=== PATIENT | female | born 1975 | race Caucasian/White ===

== ENCOUNTER → 2016-06-11 | Outpatient (CLI) | payer BC ==
[~2016-06-11] MED LIST: AMT10 PO; BCPILLS PO; CEPH500C2 PO; CETI10TA84 PO; NORE0.1T PO; ONDA4TAB10 SL; ONDA8TAB62 SL; OXYC-57 PO; OXYC1TAB3 PO; PANT40TA PO
== END | disposition home or self-care (01) ==
LOC: C.PAPS 10:02
PROVIDERS: ATTEND Physician Assistant
DX: Z01.419 Encounter for gynecological examination (general) (routine) without abnormal findings (principal)

== ENCOUNTER 2016-10-26 12:11 | Emergency (ER) | payer BC ==
[2016-10-26 12:20] VITALS: TEMP 36.6; Ht 162.6 cm
[2016-10-26] MEDS ORDERED: CETI10TA84 PO (12:35)
[2016-10-26] MEDS ORDERED: BCPILLS PO (12:35)
[2016-10-26] MEDS ORDERED: HYDROmorphone INJ 1 MG/ML SYR IV STA ×2 (12:42→13:45)
[2016-10-26] MEDS ORDERED: METOCLOPRAMIDE HCL INJ 5 MG/ML 2 ML VIAL IV STA (12:42)
[2016-10-26] MEDS ORDERED: KETOROLAC TROMETHAMINE 30 MG/ML VIAL IV STA (12:42)
[2016-10-26] MEDS ORDERED: SODIUM CHLORIDE 0.9% 1000ML 1,000 ML IV STA (12:42)
--- NOTE | 2016-10-26 12:47 | EMERGENCY ROOM VISIT NOTE ---
History Report prepared by Stephen: Justine Lucero Under the Supervision of: Dr. Avery Welch M.D. First contact with patient: 12:34 Chief Complaint: VOMITING Stated Complaint: VOMITING, LOOSE STOOLS, COUGH History of Present Illness The patient is a 41 year old female who presents to the Emergency Room with complaints of persistent abdominal pain that began today around 0200. She currently rates her discomfort as a 4/10 in severity. The patient states that Saturday she began experiencing nausea, vomiting, and diarrhea. She states that today she woke up around 0200 with chest pain, back pain, cough, chills, and abdominal pain. The patient states that she was sent to the emergency department by her PCP with concerns for appendicitis. She reports a history of ovarian cysts, a previous section, and a cholecystectomy. The patient states that her pain is alleviated with her legs towards her, noting that it helps to take the pressure of the area. Source of History: patient Onset: 0200 Position: abdomen Symptom Intensity: 4/10 Quality: pressure Timing: other (persistent) Modifying Factors (Relieving): other (legs up to her abdomen) Associated Symptoms: + chills, + cough, + chest pain, + nausea, + vomiting, + back pain, + diarrhea Review of Systems See HPI for pertinent positives & negatives. A total of 10 systems reviewed and were otherwise negative. Past Medical & Surgical Medical Problems: (1) Asthma, Unspecified (2) Pneumonia, Organism Nos (3) Syncope And Collapse Surgical Problems: (1) History of tonsillectomy (2) Previous section (3) S/P cholecystectomy Family History Cancer Diabetes mellitus Gallbladder disease Heart disease Hypertension Kidney disease Kidney stones Seizures Social History Smoking Status: Former Smoker Alcohol Use: occasionally Drug Use: none Marital Status: Housing Status: lives with significant other Occupation Status: employed Current/Historical Medications Scheduled Control Pills ( Control Pills), 1 TAB PO DAILY Cetirizine (Zyrtec), 10 MG PO DAILY Ondasetron Odt (Zofran Odt), 4 MG SL Q6H Scheduled PRN Oxycodone/Acetaminophen 5MG/325MG (Percocet 5MG/325MG), 1-2 TAB PO Q4H PRN for Pain Allergies Coded Allergies: No Known Allergies (Unverified , 01/13/15) Physical Exam Vital Signs Date Time Temp Pulse Resp B/P (MAP) Pulse Ox O2 Delivery O2 Flow Rate FiO2 10/26/16 15:09 67 23 126/86 98 Room Air 10/26/16 13:52 76 18 105/79 97 Room Air 10/26/16 13:04 80 20 130/98 98 10/26/16 13:04 85 10/26/16 12:20 36.6 124 20 142/86 97 Room Air Physical Exam GENERAL: Patient is a healthy-appearing well-nourished female HEAD: Normocephalic atraumatic EYES: Ocular movements intact pupils equal and react to light OROPHARYNX mucous membranes are moist no exudates present no erythema or edema present NECK: Supple no nuchal rigidity CHEST: Good equal expansion LUNGS: Clear and equal to auscultation CARDIAC: Normal S1 and S2 ABDOMEN: Exquisitely tender in the right lower quadrant, positive rebound, positive guarding. Soft. BACK: No CVA tenderness EXTREMITIES: No pain upon palpation normal muscle strength in all groups no clubbing cyanosis or edema NEURO: Patient is following commands and answering questions appropriately. Alert and oriented x3 Cranial Nerves 2-12 grossly intact Medical Decision & Procedures ER Provider Diagnostic Interpretation: Radiology results as stated below per my review and radiologist interpretation: ABD/PELVIS IV CONTRAST ONLY HISTORY: 41 years-old Female acute right lower quadrant abdominal pain COMPARISON: CT abdomen and pelvis 11/04/2014 TECHNIQUE: Multiple axial CT images of the abdomen and pelvis were obtained following the intravenous administration of 92 mL Optiray 320. A dose lowering technique was used consistent with the principals of ALARA. FINDINGS: There is mild dependent bibasilar atelectasis. There is no pneumoperitoneum identified. The imaged inferior cardiac chambers are unremarkable. There is suggested diffuse fatty infiltration of the liver. Prior cholecystectomy. The spleen, pancreas and adrenal glands are within normal limits. The kidneys, ureters and urinary bladder are unremarkable. Cyst of the left adnexum is seen, 2.5 x 2.3 cm. Globular morphology of the uterus is seen with hyper attenuating foci seen within the region of the right posterior fundal uterus measuring up to 3.0 x 3.5 cm. The abdominal aorta is normal in course and caliber. No bulky adenopathy. There is no bowel obstruction. Hyperattenuating foci within the colon suggests prior oral contrast. No focal bowel wall thickening. [id number] stool burden. The appendix appears normal. Soft tissues are unremarkable. The bones are intact. IMPRESSION: 1. No evidence of acute appendicitis. 2. Globular morphology of the uterus is again seen with hyperattenuating foci within the region of the right posterior fundal uterus which may reflect complex fibroids and could be further evaluated with pelvic ultrasound. Probable dominant follicle of the left ovary also noted. 3. Prior cholecystectomy. 4. Fatty infiltration of the liver. The above report was generated using voice recognition software. It may contain grammatical, syntax or spelling errors. Electronically signed by: Antony Banegas M.D. 10/26/2016 1:52 PM Dictated Date/Time: 10/26/2016 1:46 PM Laboratory Results 10/26/16 12:50 Red Blood Count 5.25, Mean Corpuscular Volume 91.4, Mean Corpuscular Hemoglobin 30.1, Mean Corpuscular Hemoglobin Concent 32.9, Mean Platelet Volume 9.0, Neutrophils (%) (Auto) 57.6, Lymphocytes (%) (Auto) 34.1, Monocytes (%) (Auto) 5.9, Eosinophils (%) (Auto) 1.4, Basophils (%) (Auto) 0.7, Neutrophils # (Auto) 4.11, Lymphocytes # (Auto) 2.43, Monocytes # (Auto) 0.42, Eosinophils # (Auto) 0.10, Basophils # (Auto) 0.05 10/26/16 12:50 Test 10/26/16 12:50 10/26/16 12:58 White Blood Count 7.13 K/uL (4.8-10.8) Red Blood Count 5.25 M/uL (4.2-5.4) Hemoglobin 15.8 g/dL (12.0-16.0) Hematocrit 48.0 % (37-47) Mean Corpuscular Volume 91.4 fL (80-100) Mean Corpuscular Hemoglobin 30.1 pg (25-34) Mean Corpuscular Hemoglobin Concent 32.9 g/dl (32-36) Platelet Count 248 K/uL (130-400) Mean Platelet Volume 9.0 fL (7.4-10.4) Neutrophils (%) (Auto) 57.6 % Lymphocytes (%) (Auto) 34.1 % Monocytes (%) (Auto) 5.9 % Eosinophils (%) (Auto) 1.4 % Basophils (%) (Auto) 0.7 % Neutrophils # (Auto) 4.11 K/uL (1.4-6.5) Lymphocytes # (Auto) 2.43 K/uL (1.2-3.4) Monocytes # (Auto) 0.42 K/uL (0.11-0.59) Eosinophils # (Auto) 0.10 K/uL (0-0.5) Basophils # (Auto) 0.05 K/uL (0-0.2) RDW Standard Deviation 41.9 fL (36.4-46.3) RDW Coefficient of Variation 12.5 % (11.5-14.5) Immature Granulocyte % (Auto) 0.3 % Immature Granulocyte # (Auto) 0.02 K/uL (0.00-0.02) Urine Color YELLOW Urine Appearance CLEAR (CLEAR) Urine pH 5.5 (4.5-7.5) Urine Specific [place] 1.012 (1.000-1.030) Urine Protein NEG (NEG) Urine Glucose (UA) NEG (NEG) Urine Ketones NEG (NEG) Urine Occult Blood 1+ (NEG) Urine Nitrite NEG (NEG) Urine Bilirubin NEG (NEG) Urine Urobilinogen NEG (NEG) Urine Leukocyte Esterase NEG (NEG) Urine WBC (Auto) 1-5 /hpf (0-5) Urine RBC (Auto) 0-4 /hpf (0-4) Urine Hyaline Casts (Auto) 1-5 /lpf (0-5) Urine Epithelial Cells (Auto) >30 /lpf (0-5) Urine Bacteria (Auto) NEG (NEG) Estimated GFR () 94.0 Estimated GFR (Non- 81.1 BUN/Creatinine Ratio 15.1 (10-20) Calcium Level 9.3 mg/dl (8.5-10.1) Total Bilirubin 0.4 mg/dl (0.2-1) Direct Bilirubin < 0.1 mg/dl (0-0.2) Aspartate Amino Transf (AST/SGOT) 54 U/L (15-37) Alanine Aminotransferase (ALT/SGPT) 85 U/L (12-78) Alkaline Phosphatase 58 U/L (45-117) Total Protein 6.9 gm/dl (6.4-8.2) Albumin 3.6 gm/dl (3.4-5.0) Lipase 334 U/L (73-393) Bedside Hemoglobin 16.0 g/dl (12.0-16.0) Bedside Hematocrit 47 % (37-47) Bedside Sodium 140 mEq/L (135-144) Bedside Potassium 4.0 mEq/L (3.3-5.0) Bedside Chloride 104 mEq/L (101-112) Bedside Total CO2 24 mEq/l (24-31) Anion Gap 16.0 mmol/L (16-25) Bedside Blood Urea Nitrogen 14 mg/dl (7-18) Bedside Creatinine 0.9 mg/dl (0.6-1.3) Bedside Glucose (other) 104 mg/dl (70-99) Bedside Ionized Calcium (Kayla) 1.18 mmol/l (1.12-1.32) Labs reviewed by ED physician. Medications Administered Medications (Trade) Dose Ordered Sig/Chantell Route Start Time Stop Time Status Last Admin Dose Admin Sodium Chloride 1,000 ml @ 999 mls/hr Q1H1M STAT IV 10/26/16 12:42 10/26/16 13:42 DC 10/26/16 12:56 999 MLS/HR Ketorolac Tromethamine (Toradol Inj) 30 mg NOW STAT IV 10/26/16 12:42 10/26/16 12:44 DC 10/26/16 12:58 30 MG Hydromorphone HCl (Dilaudid Inj) 1 mg NOW STAT IV 10/26/16 12:42 10/26/16 12:44 DC 10/26/16 12:58 1 MG Metoclopramide HCl (Reglan Inj) 10 mg NOW STAT IV 10/26/16 12:42 10/26/16 12:44 DC 10/26/16 12:56 10 MG Ondansetron HCl (Zofran Inj) 4 mg NOW STAT IV 10/26/16 13:45 10/26/16 13:46 DC 10/26/16 13:50 4 MG Hydromorphone HCl (Dilaudid Inj) 1 mg NOW STAT IV 10/26/16 13:45 10/26/16 13:46 DC 10/26/16 13:50 1 MG ED Course 1234: Past medical records reviewed. The patient was evaluated in room B12B. A complete history and physical examination was performed. 1242: Ordered Reglan Inj 10 mg IV, Dilaudid Inj 1 mg IV, Toradol Inj 30 mg IV, Sodium Chloride 1000 ml @ 999 mls/hr IV. 1345: Per nursing staff the patient is still feeling nauseated. Ordered Dilaudid Inj 1 mg IV, Zofran Inj 4 mg IV. 1356: I reevaluated the patient and she is resting. I discussed the exam findings with her and I discussed the treatment plan. She verbalized complete understanding and agreement. She is ready to go home. Medical Decision Differential diagnosis: Etiologies such as appendicitis, diverticulitis, PUD, biliary pathology, UTI, pancreatitis, obstruction, mesenteric ischemia, aortic pathology, infections, inflammatory bowel disease, renal colic, as well as others were entertained. This is a 41-year-old female who presents emergency Department with gastroenteritis-like symptoms. The patient was sent in by her primary care physician over concerns that she may have appendicitis. An IV was established, the patient given normal saline bolus. She was sent for CAT scan abdomen pelvis. She does not have an elevation in her white blood count cell count and her appendix appears to be normal on the CAT scan. Based on these findings I feel the patient can be safely discharged. Serial abdominal examinations were performed on the patient in the emergency department and at no tender the patient exhibit a surgical abdomen. An IV was established, the patient given normal saline bolus, Toradol, Dilaudid. Repeat examination revealed improvement patient's symptoms. I do feel that the patient as well as to be discharged home for follow-up with the primary care physician. Patient was in agreement with the treatment plan. Medication Reconcilliation Current Medication List: was personally reviewed by me Blood Pressure Screening Patient's blood pressure: Normal blood pressure Blood pressure disposition: Did not require urgent referral Impression Primary Impression: Gastroenteritis Scribe Attestation The scribe's documentation has been prepared under my direction and personally reviewed by me in its entirety. I confirm that the note above accurately reflects all work, treatment, procedures, and medical decision making performed by me. Departure Information Dispostion Home / Self-Care Prescriptions Ondasetron Odt (ZOFRAN ODT) 4 Mg Tab 4 MG SL Q6H for Nausea, #6 TAB Prov: Avery Welch MD 10/26/16 Oxycodone/Acetaminophen 5MG/325MG (PERCOCET 5MG/325MG) Tab 1-2 TAB PO Q4H Y for Pain, #14 TAB Prov: Avery Welch MD 10/26/16 Referrals Vanessa Jenkins (PCP) Forms HOME CARE DOCUMENTATION FORM, IMPORTANT VISIT INFORMATION, School Instructions, Work Instructions Patient Instructions Diet Clear Liquid Dc, ED Gastroenteritis Report Pend, My [facility] Additional Instructions Clear liquid diet next 48 hours You received narcotic or benzodiazepene medication while in the emergency room today. This is an addictive medication that may cause drowziness as well as constipation. Do not drive, operate heavy machinery, or drink alcohol under the influence of this medication. Take 600 mg Ibuprofen every 6 hours Take Percocet for breakthrough pain You have been examined and treated today on an emergency basis only. This is not a substitute for, or an effort to provide, complete comprehensive medical care. It is impossible to recognize and treat all injuries or illnesses in a single emergency department visit. It is therefore important that you follow up closely with your PCP. Call as soon as possible for an appointment. Thank you for your time and consideration. I look forward to speaking with you again soon. Please don't hesitate to call us if you have any questions.
[2016-10-26 13:09] LABS: BASO % 0.7 %; BASO ABS # 0.05 K/uL (0-0.2); COMPLETE YES; EOS % 1.4 %; IG% 0.3 %; LYMPH % 34.1 %; LYMPH ABS # 2.43 K/uL (1.2-3.4); MEAN CELL VOLUME 91.4 fL (80-100); MEAN CORPUSCULAR HEMOGLOBIN 30.1 pg (25-34); MEAN CORPUSCULAR HGB CONC 32.9 g/dl (32-36); MONO % 5.9 %; NEUT % 57.6 %; PLATELET COUNT 248 K/uL (130-400); RED BLOOD COUNT 5.25 M/uL (4.2-5.4); WHITE BLOOD COUNT 7.13 K/uL (4.8-10.8)
[2016-10-26 13:12] LABS: ISTAT CREATININE 0.9 mg/dl (0.6-1.3); ISTAT IONIZED CALCIUM 1.18 mmol/l (1.12-1.32)
[2016-10-26 13:15] LABS: URINE APPEARANCE CLEAR (CLEAR); URINE BILIRUBIN NEG (NEG); URINE COLOR YELLOW; URINE EPITHELIAL CELL AUTO >30 /lpf (0-5); URINE NITRITE NEG (NEG); URINE PH 5.5 (4.5-7.5); URINE SPECIFIC GRAVITY 1.012 (1.000-1.030); UROBILINOGEN NEG (NEG)
[2016-10-26 13:19] LABS: MANUAL MICROSCOPIC REQUIRED? NO; REVIEW REQ? NO
[2016-10-26 13:27] LABS: ALT/SGPT 85 U/L (12-78); AST/SGOT 54 U/L (15-37); BLOOD UREA NITROGEN 13 mg/dl (7-18); BUN/CREATININE RATIO 15.1 (10-20); CALCIUM 9.3 mg/dl (8.5-10.1); CARBON DIOXIDE 27 mmol/L (21-32); CHLORIDE 107 mmol/L (98-107); CREATININE 0.89 mg/dl (0.60-1.20); GLUCOSE 106 mg/dl (70-99); POTASSIUM 4.2 mmol/L (3.5-5.1); SODIUM 141 mmol/L (136-145)
[2016-10-26 13:28] LABS: ALKALINE PHOSPHATASE 58 U/L (45-117)
[2016-10-26] MEDS ORDERED: OPTIRAY 320 IV PRN (13:30)
[2016-10-26] MEDS ORDERED: ONDANSETRON INJ 2 MG/ML 2 ML VIAL IV STA (13:45)
--- NOTE | 2016-10-26 13:53 | DIAGNOSTIC IMAGING REPORT ---
ABD/PELVIS IV CONTRAST ONLY HISTORY: 41 years-old Female acute right lower quadrant abdominal pain COMPARISON: CT abdomen and pelvis 11/04/2014 TECHNIQUE: Multiple axial CT images of the abdomen and pelvis were obtained following the intravenous administration of 92 mL Optiray 320. A dose lowering technique was used consistent with the principals of ROSALEE. FINDINGS: There is mild dependent bibasilar atelectasis. There is no pneumoperitoneum identified. The imaged inferior cardiac chambers are unremarkable. There is suggested diffuse fatty infiltration of the liver. Prior cholecystectomy. The spleen, pancreas and adrenal glands are within normal limits. The kidneys, ureters and urinary bladder are unremarkable. Cyst of the left adnexum is seen, 2.5 x 2.3 cm. Globular morphology of the uterus is seen with hyper attenuating foci seen within the region of the right posterior fundal uterus measuring up to 3.0 x 3.5 cm. The abdominal aorta is normal in course and caliber. No bulky adenopathy. There is no bowel obstruction. Hyperattenuating foci within the colon suggests prior oral contrast. No focal bowel wall thickening. Bqso-so-xxrasqah stool burden. The appendix appears normal. Soft tissues are unremarkable. The bones are intact. IMPRESSION: 1. No evidence of acute appendicitis. 2. Globular morphology of the uterus is again seen with hyperattenuating foci within the region of the right posterior fundal uterus which may reflect complex fibroids and could be further evaluated with pelvic ultrasound. Probable dominant follicle of the left ovary also noted. 3. Prior cholecystectomy. 4. Fatty infiltration of the liver. The above report was generated using voice recognition software. It may contain grammatical, syntax or spelling errors. Electronically signed by: Antony Banegas M.D. 10/26/2016 1:52 PM Dictated Date/Time: 10/26/2016 1:46 PM
[2016-10-26] MEDS ORDERED: OXYC-57 PO (13:59)
[2016-10-26] MEDS ORDERED: ONDA4TAB10 SL (14:29)
[2016-10-26 15:09] VITALS: BP 126/86; PULSE 67; O2SAT 98
== END 2016-10-26 15:20 | disposition home or self-care (01) ==
LOC: C.EDB 12:13
DX: K52.9 Noninfective gastroenteritis and colitis, unspecified (principal); J45.909 Unspecified asthma, uncomplicated; Z87.01 Personal history of pneumonia (recurrent); Z80.9 Family history of malignant neoplasm, unspecified; Z83.3 Family history of diabetes mellitus; Z82.49 Family history of ischemic heart disease and other diseases of the circulatory system; Z84.1 Family history of disorders of kidney and ureter; Z87.891 Personal history of nicotine dependence; Z79.3 Long term (current) use of hormonal contraceptives; Z79.899 Other long term (current) drug therapy

== ENCOUNTER 2016-10-28 13:59 | Emergency (ER) | payer BC ==
[~2016-10-28] VITALS: Ht 162.6 cm; Wt 74.3 kg
[~2016-10-28 13:59] MED LIST changes: -AMT10 PO; -CEPH500C2 PO; -NORE0.1T PO; -ONDA8TAB62 SL; -OXYC1TAB3 PO; -PANT40TA PO
[2016-10-28 14:17] VITALS: TEMP 36.7; Ht 162.6 cm; Wt 74.3 kg
[2016-10-28] MEDS ORDERED: PROMETHAZINE HCL INJ 12.5 MG in SODIUM CHLORIDE 0.9% 50ML 50 ML IV STA (14:42)
[2016-10-28] MEDS ORDERED: KETOROLAC TROMETHAMINE 30 MG/ML VIAL IV STA (14:42)
[2016-10-28] MEDS ORDERED: SODIUM CHLORIDE 0.9% 1000ML 1,000 ML IV STA ×2 (14:42)
--- NOTE | 2016-10-28 14:56 | EMERGENCY ROOM VISIT NOTE ---
History Report prepared by Stephen: Dean Moise Under the Supervision of: Dr. Sada Hale M.D. First contact with patient: 14:26 Chief Complaint: VOMITING Stated Complaint: VOMITING, NAUSEA History of Present Illness The patient is a 41 year old female who presents to the Emergency Room with complaints of worsening vomiting that started six days ago. She rates her pain as a 6/10 in severity. The patient states that she has been experiencing vomiting and diarrhea five days ago, but admits her diarrhea stopped two days ago. The patient states that she came into the ED two days ago for her symptoms where they diagnosed her with appendicitis and put her on a liquid diet. The patient reports that she had not been able to give a stool sample during her visit. She states that she still has not been able to keep anything down and has been vomiting everything up. The patient states that she has been given monserrat jorge, but reports that she has vomited that as well. The patient reports that she has also been experiencing abdominal pain, which she states is worse on her right side. She admits to a history of food allergies and cholecystectomy. She states that her has been experiencing a sinus infection, but denies that he has been experiencing similar symptoms. The patient denies a possible , a history of GI problems, melena, and hematochezia. Source of History: patient Onset: six days ago Position: other (global) Symptom Intensity: 6/10 Timing: worsening Associated Symptoms: + nausea, + abdominal pain, + diarrhea, No melena, No hematochezia Review of Systems See HPI for pertinent positives & negatives. A total of 10 systems reviewed and were otherwise negative. Past Medical & Surgical Medical Problems: (1) Asthma, Unspecified (2) Pneumonia, Organism Nos (3) Syncope And Collapse Surgical Problems: (1) History of tonsillectomy (2) Previous section (3) S/P cholecystectomy Family History Cancer Diabetes mellitus Gallbladder disease Heart disease Hypertension Kidney disease Kidney stones Seizures Social History Smoking Status: Never Smoker Alcohol Use: occasionally Drug Use: none Marital Status: Housing Status: lives with significant other Occupation Status: employed Current/Historical Medications Scheduled Control Pills ( Control Pills), 1 TAB PO DAILY Cetirizine (Zyrtec), 10 MG PO DAILY Ondasetron Odt (Zofran Odt), 4 MG SL Q6H Ondasetron Odt (Zofran Odt), 4 MG SL Q6H Pantoprazole (Protonix), 40 MG PO DAILY Scheduled PRN Oxycodone/Acetaminophen 5MG/325MG (Percocet 5MG/325MG), 1-2 TAB PO Q4H PRN for Pain Allergies Coded Allergies: No Known Allergies (Unverified , 01/13/15) Physical Exam Vital Signs Date Time Temp Pulse Resp B/P (MAP) Pulse Ox O2 Delivery O2 Flow Rate FiO2 10/28/16 16:46 74 16 116/72 100 Room Air 10/28/16 15:44 76 20 134/72 97 Room Air 10/28/16 14:17 36.7 76 20 132/88 97 Room Air Physical Exam Vital signs reviewed. General: Well-appearing 41 year old female, in no significant distress. HEENT: No scleral icterus, PERRLA, neck supple. Atraumatic. Cardiovascular: Regular rate and rhythm, no extra sounds. Pulmonary: Clear to auscultation bilaterally, normal work of breathing. Abdomen: Soft, epigastric tenderness, no rebound or guarding, nondistended, positive bowel sounds. Musculoskeletal: Atraumatic, no peripheral edema. Neurologic: Patient awake alert and oriented x 3 Skin: Warm, dry, no rash Medical Decision & Procedures Laboratory Results 10/28/16 15:00 Red Blood Count 4.87, Mean Corpuscular Volume 91.8, Mean Corpuscular Hemoglobin 31.6, Mean Corpuscular Hemoglobin Concent 34.5, Mean Platelet Volume 8.8, Neutrophils (%) (Auto) 65.5, Lymphocytes (%) (Auto) 27.2, Monocytes (%) (Auto) 5.9, Eosinophils (%) (Auto) 0.7, Basophils (%) (Auto) 0.6, Neutrophils # (Auto) 5.55, Lymphocytes # (Auto) 2.31, Monocytes # (Auto) 0.50, Eosinophils # (Auto) 0.06, Basophils # (Auto) 0.05 10/28/16 15:00 Test 10/28/16 15:00 White Blood Count 8.48 K/uL (4.8-10.8) Red Blood Count 4.87 M/uL (4.2-5.4) Hemoglobin 15.4 g/dL (12.0-16.0) Hematocrit 44.7 % (37-47) Mean Corpuscular Volume 91.8 fL (80-100) Mean Corpuscular Hemoglobin 31.6 pg (25-34) Mean Corpuscular Hemoglobin Concent 34.5 g/dl (32-36) Platelet Count 218 K/uL (130-400) Mean Platelet Volume 8.8 fL (7.4-10.4) Neutrophils (%) (Auto) 65.5 % Lymphocytes (%) (Auto) 27.2 % Monocytes (%) (Auto) 5.9 % Eosinophils (%) (Auto) 0.7 % Basophils (%) (Auto) 0.6 % Neutrophils # (Auto) 5.55 K/uL (1.4-6.5) Lymphocytes # (Auto) 2.31 K/uL (1.2-3.4) Monocytes # (Auto) 0.50 K/uL (0.11-0.59) Eosinophils # (Auto) 0.06 K/uL (0-0.5) Basophils # (Auto) 0.05 K/uL (0-0.2) RDW Standard Deviation 42.1 fL (36.4-46.3) RDW Coefficient of Variation 12.5 % (11.5-14.5) Immature Granulocyte % (Auto) 0.1 % Immature Granulocyte # (Auto) 0.01 K/uL (0.00-0.02) Urine Color YELLOW Urine Appearance CLEAR (CLEAR) Urine pH 6.5 (4.5-7.5) Urine Specific [place] 1.018 (1.000-1.030) Urine Protein NEG (NEG) Urine Glucose (UA) NEG (NEG) Urine Ketones NEG (NEG) Urine Occult Blood 2+ (NEG) Urine Nitrite NEG (NEG) Urine Bilirubin NEG (NEG) Urine Urobilinogen NEG (NEG) Urine Leukocyte Esterase NEG (NEG) Urine WBC (Auto) 1-5 /hpf (0-5) Urine RBC (Auto) 10-30 /hpf (0-4) Urine Hyaline Casts (Auto) 1-5 /lpf (0-5) Urine Epithelial Cells (Auto) >30 /lpf (0-5) Urine Bacteria (Auto) NEG (NEG) Anion Gap 6.0 mmol/L (3-11) Est Creatinine Clear Calc Drug Dose 83.9 ml/min Estimated GFR () 95.3 Estimated GFR (Non- 82.2 BUN/Creatinine Ratio 9.3 (10-20) Calcium Level 9.2 mg/dl (8.5-10.1) Total Bilirubin 0.4 mg/dl (0.2-1) Direct Bilirubin 0.1 mg/dl (0-0.2) Aspartate Amino Transf (AST/SGOT) 43 U/L (15-37) Alanine Aminotransferase (ALT/SGPT) 73 U/L (12-78) Alkaline Phosphatase 54 U/L (45-117) Total Protein 6.6 gm/dl (6.4-8.2) Albumin 3.6 gm/dl (3.4-5.0) Lipase 207 U/L (73-393) Thyroid Stimulating Hormone (TSH) 0.785 uIu/ml (0.300-4.500) Human Chorionic Gonadotropin, Qual NEG (NEG) Laboratory results per my review. Medications Administered Medications (Trade) Dose Ordered Sig/Chantell Route Start Time Stop Time Status Last Admin Dose Admin Ketorolac Tromethamine (Toradol Inj) 30 mg NOW STAT IV 10/28/16 14:42 10/28/16 14:45 DC 10/28/16 15:33 30 MG Promethazine HCl 12.5 mg/Sodium Chloride 50.5 ml @ 204 mls/hr NOW STAT IV 10/28/16 14:42 10/28/16 14:56 DC 10/28/16 15:33 204 MLS/HR Sodium Chloride 1,000 ml @ 999 mls/hr Q1H1M STAT IV 10/28/16 14:42 10/28/16 15:42 DC 10/28/16 15:32 999 MLS/HR Sodium Chloride 1,000 ml @ 125 mls/hr Q8H STAT IV 10/28/16 14:42 10/28/16 18:26 DC 10/28/16 15:40 125 MLS/HR ED Course 1441: Past medical records reviewed. The patient was evaluated in room A12B. A complete history and physical examination was performed. 1442: Ordered Sodium Chloride 1000 ml @ 125 mls/hr IV, Sodium Chloride 1000 ml @ 999 mls/hr IV, Promethazine HCl 12.5 mg/ Sodium Chloride 50.5 ml @ 204 mls/hr IV, Toradol Injection 30 mg IV. 1724: Upon reevaluation, the patient appeared to have improvement of her symptoms. I discussed findings with her. The patient verbalized agreement of the treatment plan. She was discharged home. Medical Decision Differential diagnosis: Etiologies such as gastroenteritis, food borne illness, infections, appendicitis , diverticulitis, inflammatory bowel disease, obstruction, GI bleed, biliary pathology, as well as others were entertained. This patient was evaluated and appeared to be in no significant distress. IV access was obtained and laboratory work was drawn. Patient was placed on the monitoring specialist and found to be in a normal sinus rhythm. She was hydrated with normal saline solution, given IV Toradol and Phenergan. Patient's laboratory work is fairly unrevealing. Urinalysis reveals microscopic blood, this is likely menstrual related. She was not able to provide a stool specimen. Patient was advised that this is likely viral. If the diarrhea persists a stool sample will be helpful. She will follow-up with her physician this week and return to the ER for worsening of symptoms or any medical concerns. Medication Reconcilliation Current Medication List: was personally reviewed by me Blood Pressure Screening Patient's blood pressure: Normal blood pressure Impression Primary Impression: Vomiting Scribe Attestation The scribe's documentation has been prepared under my direction and personally reviewed by me in its entirety. I confirm that the note above accurately reflects all work, treatment, procedures, and medical decision making performed by me. Departure Information Dispostion Home / Self-Care Prescriptions Pantoprazole (Protonix) 40 Mg Tab 40 MG PO DAILY, #30 TAB Prov: Sada Hale M.D. 10/28/16 Ondasetron Odt (ZOFRAN ODT) 4 Mg Tab 4 MG SL Q6H for Nausea, #10 TAB Prov: Sada Hale M.D. 10/28/16 Referrals No Doctor, Assigned (PCP) Forms HOME CARE DOCUMENTATION FORM, IMPORTANT VISIT INFORMATION Patient Instructions My [facility] Additional Instructions Diagnosis: Vomiting Protonix 40 mg by mouth daily. Zofran 4 mg every 6 hours as needed for nausea. Please drink plenty of clear fluids. Advance your diet slowly as tolerated. BRAT diet: Bananas, rice, applesauce and toast. Follow-up with your physician this week for reevaluation. Return to the ER for worsening of symptoms or any medical concerns.
[2016-10-28 15:11] LABS: BASO % 0.6 %; BASO ABS # 0.05 K/uL (0-0.2); COMPLETE YES; EOS % 0.7 %; HEMATOCRIT 44.7 % (37-47); IG% 0.1 %; LYMPH % 27.2 %; LYMPH ABS # 2.31 K/uL (1.2-3.4); MEAN CELL VOLUME 91.8 fL (80-100); MEAN CORPUSCULAR HEMOGLOBIN 31.6 pg (25-34); MEAN CORPUSCULAR HGB CONC 34.5 g/dl (32-36); MEAN PLATELET VOLUME 8.8 fL (7.4-10.4); MONO % 5.9 %; NEUT % 65.5 %; PLATELET COUNT 218 K/uL (130-400); RED BLOOD COUNT 4.87 M/uL (4.2-5.4); WHITE BLOOD COUNT 8.48 K/uL (4.8-10.8)
[2016-10-28 15:22] LABS: URINE APPEARANCE CLEAR (CLEAR); URINE BILIRUBIN NEG (NEG); URINE COLOR YELLOW; URINE EPITHELIAL CELL AUTO >30 /lpf (0-5); URINE NITRITE NEG (NEG); URINE PH 6.5 (4.5-7.5); URINE SPECIFIC GRAVITY 1.018 (1.000-1.030); UROBILINOGEN NEG (NEG); ZZUR CULT IF INDIC CLEAN CATCH NO
[2016-10-28 15:23] LABS: MANUAL MICROSCOPIC REQUIRED? NO; REVIEW REQ? NO
[2016-10-28 15:34] LABS: BUN/CREATININE RATIO 9.3 (10-20); CALCIUM 9.2 mg/dl (8.5-10.1); CREATININE 0.88 mg/dl (0.60-1.20); POTASSIUM 4.2 mmol/L (3.5-5.1)
[2016-10-28 15:36] LABS: PREG INTERNAL NEGATIVE QC NEG CLEAR BACKGROUND; PREG INTERNAL POSITIVE QC POS CONTROL LINE
[2016-10-28 15:54] LABS: THYROID STIMULATING HORMONE 0.785 uIu/ml (0.300-4.500)
[2016-10-28 16:46] VITALS: BP 116/72; PULSE 74; O2SAT 100
[2016-10-28] MEDS ORDERED: ONDA4TAB10 SL (17:13)
[2016-10-28] MEDS ORDERED: PANT40TA PO (17:15)
== END 2016-10-28 17:27 | disposition home or self-care (01) ==
LOC: C.EDB 14:01 → C.EDA 17:27
DX: R11.10 Vomiting, unspecified (principal); R19.7 Diarrhea, unspecified; R10.9 Unspecified abdominal pain; J45.909 Unspecified asthma, uncomplicated; Z79.3 Long term (current) use of hormonal contraceptives; Z79.899 Other long term (current) drug therapy; Z87.01 Personal history of pneumonia (recurrent); Z82.0 Family history of epilepsy and other diseases of the nervous system; Z82.49 Family history of ischemic heart disease and other diseases of the circulatory system; Z83.3 Family history of diabetes mellitus; Z83.79 Family history of other diseases of the digestive system; Z84.1 Family history of disorders of kidney and ureter

== ENCOUNTER 2017-01-09 11:43 | Emergency (ER) | payer BC ==
[~2017-01-09] VITALS: Ht 162.6 cm; Wt 69.6 kg
[~2017-01-09 11:43] MED LIST changes: +PANT40TA PO
[2017-01-09 11:45] VITALS: TEMP 36.3; Ht 162.6 cm; Wt 69.6 kg
[2017-01-09] MEDS ORDERED: SODIUM CHLORIDE 0.9% 1000ML 1,000 ML IV STA (11:56)
[2017-01-09] MEDS ORDERED: ONDANSETRON INJ 2 MG/ML 2 ML VIAL IV STA ×2 (11:56→12:42)
[2017-01-09 12:09] LABS: BASO % 0.8 %; BASO ABS # 0.07 K/uL (0-0.2); COMPLETE YES; EOS % 1.3 %; HEMATOCRIT 46.3 % (37-47); IG% 0.1 %; LYMPH % 34.2 %; MEAN CELL VOLUME 90.4 fL (80-100); MEAN CORPUSCULAR HEMOGLOBIN 32.4 pg (25-34); MEAN CORPUSCULAR HGB CONC 35.9 g/dl (32-36); MEAN PLATELET VOLUME 8.9 fL (7.4-10.4); MONO % 5.1 %; NEUT % 58.5 %; PLATELET COUNT 253 K/uL (130-400); RED BLOOD COUNT 5.12 M/uL (4.2-5.4); WHITE BLOOD COUNT 8.48 K/uL (4.8-10.8)
[2017-01-09] MEDS: MoRPHine SULFATE 4 MG/ML 1 ML CARP\\VIAL IV PRN ×2 (12:14→13:40)
[2017-01-09] MEDS ORDERED: NORE0.1T PO (12:17)
[2017-01-09] MEDS ORDERED: AMT10 PO (12:17)
[2017-01-09] MEDS ORDERED: ONDA8TAB62 SL (12:17)
[2017-01-09 12:24] LABS: ALT/SGPT 45 U/L (12-78); BLOOD UREA NITROGEN 15 mg/dl (7-18); BUN/CREATININE RATIO 14.9 (10-20); CALCIUM 9.5 mg/dl (8.5-10.1); CARBON DIOXIDE 25 mmol/L (21-32); CHLORIDE 105 mmol/L (98-107); GLUCOSE 78 mg/dl (70-99); POTASSIUM 3.9 mmol/L (3.5-5.1); SODIUM 139 mmol/L (136-145)
[2017-01-09 12:27] LABS: URINE APPEARANCE CLEAR (CLEAR); URINE BILIRUBIN NEG (NEG); URINE COLOR YELLOW; URINE EPITHELIAL CELL AUTO >30 /lpf (0-5); URINE NITRITE NEG (NEG); URINE SPECIFIC GRAVITY 1.023 (1.000-1.030); UROBILINOGEN NEG (NEG)
[2017-01-09 12:28] LABS: INR 0.9 (0.9-1.1); PREG INTERNAL NEGATIVE QC NEG CLEAR BACKGROUND; PREG INTERNAL POSITIVE QC POS CONTROL LINE; PROTHROMBIN TIME (PATIENT) 9.9 SECONDS (9.0-12.0)
[2017-01-09 12:29] LABS: ALKALINE PHOSPHATASE 59 U/L (45-117); AST/SGOT 36 U/L (15-37)
[2017-01-09 12:39] LABS: MANUAL MICROSCOPIC REQUIRED? NO; REVIEW REQ? NO
--- NOTE | 2017-01-09 12:50 | EMERGENCY ROOM VISIT NOTE ---
History Report prepared by Stephen: Halima Noonan Under the Supervision of: Dr. Pascual Simons D.O. First contact with patient: 11:50 Chief Complaint: ABDOMINAL PAIN Stated Complaint: RIGHT SIDED ABD. PAIN History of Present Illness The patient is a 41 year old female who presents to the Emergency Room with complaints of constant RUQ abdominal pain beginning last night. The patient was feeling fine last night when she went to bed. She woke up in the middle of the night with significant RUQ abdominal pain that was radiating into her back. She has had nausea and vomiting for the past 2 hours. She states that she has been unable to keep down any water. She reports chills as well. The patient rates her pain as a 7/10 in severity. She saw her PCP today and was sent to the ED for further evaluation. She states that she has had similar symptoms in the past from colitis. The patient denies chest pain, shortness of breath, coughing , and urinary symptoms. She denies any personal history of blood clots or kidney stones. She does have a history of IBS and a cholecystectomy. She takes OCP and does not get regular periods. Source of History: patient Onset: last night Position: abdomen (RUQ) Symptom Intensity: 7/10 Quality: other (radiating) Timing: constant Associated Symptoms: + chills, + nausea, + vomiting, + back pain, No cough, No chest pain, No SOB, No urinary symptoms Review of Systems See HPI for pertinent positives & negatives. A total of 10 systems reviewed and were otherwise negative. Past Medical & Surgical Medical Problems: (1) Asthma, Unspecified (2) Pneumonia, Organism Nos (3) Syncope And Collapse Surgical Problems: (1) History of tonsillectomy (2) Previous section (3) S/P cholecystectomy Family History Cancer Diabetes mellitus Gallbladder disease Heart disease Hypertension Kidney disease Kidney stones Seizures Social History Smoking Status: Never Smoker Alcohol Use: occasionally Drug Use: none Marital Status: Housing Status: lives with significant other Occupation Status: employed Current/Historical Medications Scheduled Amitriptyline HCl (Amitriptyline HCl), 30 MG PO HS Cephalexin Monohydrate (Keflex), 500 MG PO QID Cetirizine (Zyrtec), 10 MG PO DAILY Norethindrone & Eth Estradiol (Alyacen ), 1 TAB PO UD Scheduled PRN Ondansetron Odt (Zofran Odt), 1 TAB SL TID PRN for Nausea Oxycodone Immediate Rel Tab (Roxicodone Ir), 1-2 TAB PO Q4H PRN for Severe Pain Allergies Coded Allergies: Nut Tree (Unverified Allergy, Severe, ., 01/09/17) Peanut (Unverified Allergy, Severe, ., 01/09/17) Prochlorperazine (Unverified Adverse Reaction, Severe, "MADE ME WANT TO JUMP OUT OF MY SKIN"-PT, 01/09/17) Physical Exam Vital Signs Date Time Temp Pulse Resp B/P (MAP) Pulse Ox O2 Delivery O2 Flow Rate FiO2 01/09/17 14:50 65 20 130/76 98 Room Air 01/09/17 14:03 77 20 127/80 95 01/09/17 12:42 82 20 125/77 100 01/09/17 11:45 36.3 88 20 146/89 99 Room Air Physical Exam GENERAL: Patient is awake, alert, very anxious appearing and appears uncomfortable. EYES: The conjunctivae are clear. The pupils are round and reactive. EARS, NOSE, MOUTH AND THROAT: The nose is without any evidence of any deformity. Mucous membranes are moist tongue is midline NECK: The neck is nontender and supple. RESPIRATORY: Normal respiratory effort is noted there is no evidence of wheezing rhonchi or rales CARDIOVASCULAR: Regular rate and rhythm noted there no murmurs rubs or gallops normal S1 normal S2 GASTROINTESTINAL: The abdomen is mildly distended but soft. Significant RUQ TTP. Bowel sounds are present in all quadrants. MUSCULOSKELETAL/EXTREMITIES: There is no evidence of gross deformity full range of motion is noted in the hips and shoulders SKIN: There is no obvious evidence of any rash. There are no petechiae, pallor or cyanosis noted. NEUROLOGIC: Patient is awake alert and oriented x3 Medical Decision & Procedures ER Provider Diagnostic Interpretation: Radiology results as stated below per my review and radiologist interpretation: CHEST ONE VIEW PORTABLE CLINICAL HISTORY: Pain, radiating to the abdomen. COMPARISON STUDY: 05/22/2013 FINDINGS: The cardiac and mediastinal contours are normal. There is no evidence of focal pulmonary consolidation. There is no evidence of failure. No pleural effusions are visualized.[ No free intraperitoneal air is visualized. IMPRESSION: No active disease in the chest. Electronically signed by: Truong Navarro M.D. 01/09/2017 2:17 PM Dictated Date/Time: 01/09/2017 2:16 PM (RENAL)RETROPERITON COMP CLINICAL HISTORY: 41 years-old Female presenting with flank pain. TECHNIQUE: Real-time grayscale and limited color Doppler ultrasound imaging of the kidneys and bladder was performed. COMPARISON: None. FINDINGS: Right kidney: Normal echogenicity. Right kidney measures 9.9 cm. No hydronephrosis. No convincing evidence of calculus or mass. Normal perfusion. Left kidney: Normal echogenicity. Left kidney measures 10.2 cm. No hydronephrosis. No convincing evidence of calculus or mass. Normal perfusion. Bladder: No bladder wall thickening. Bilateral ureteral jets present. Other: Hyperechogenicity consistent with hepatic steatosis. IMPRESSION: 1. Normal renal ultrasound. No obstruction. 2. Hepatic steatosis. Correlate with LFTs to exclude steatohepatitis as a cause for flank pain. Electronically signed by: Amanuel Roblero M.D. 01/09/2017 1:24 PM Dictated Date/Time: 01/09/2017 1:19 PM KUB CLINICAL HISTORY: Right flank pain. COMPARISON STUDY: CT of the abdomen and pelvis October 26, 2016 and renal ultrasound performed earlier today. FINDINGS: Pelvic calcifications were shown to represent phleboliths on prior CT. There are cholecystectomy clips. No urinary calculi are identified. Bowel gas pattern is normal. IMPRESSION: 1. No urinary calculi identified. 2. No evidence for a bowel obstruction. Electronically signed by: Mateo Jones M.D. 01/09/2017 2:25 PM Dictated Date/Time: 01/09/2017 2:24 PM Laboratory Results 01/09/17 11:55 Red Blood Count 5.12, Mean Corpuscular Volume 90.4, Mean Corpuscular Hemoglobin 32.4, Mean Corpuscular Hemoglobin Concent 35.9, Mean Platelet Volume 8.9, Neutrophils (%) (Auto) 58.5, Lymphocytes (%) (Auto) 34.2, Monocytes (%) (Auto) 5.1, Eosinophils (%) (Auto) 1.3, Basophils (%) (Auto) 0.8, Neutrophils # (Auto) 4.96, Lymphocytes # (Auto) 2.90, Monocytes # (Auto) 0.43, Eosinophils # (Auto) 0.11, Basophils # (Auto) 0.07 01/09/17 11:55 Test 01/09/17 11:50 01/09/17 11:55 Urine Color YELLOW Urine Appearance CLEAR (CLEAR) Urine pH 5.0 (4.5-7.5) Urine Specific [place] 1.023 (1.000-1.030) Urine Protein NEG (NEG) Urine Glucose (UA) NEG (NEG) Urine Ketones NEG (NEG) Urine Occult Blood 2+ (NEG) Urine Nitrite NEG (NEG) Urine Bilirubin NEG (NEG) Urine Urobilinogen NEG (NEG) Urine Leukocyte Esterase NEG (NEG) Urine WBC (Auto) 0 /hpf (0-5) Urine RBC (Auto) 10-30 /hpf (0-4) Urine Hyaline Casts (Auto) 1-5 /lpf (0-5) Urine Epithelial Cells (Auto) >30 /lpf (0-5) Urine Bacteria (Auto) NEG (NEG) White Blood Count 8.48 K/uL (4.8-10.8) Red Blood Count 5.12 M/uL (4.2-5.4) Hemoglobin 16.6 g/dL (12.0-16.0) Hematocrit 46.3 % (37-47) Mean Corpuscular Volume 90.4 fL (80-100) Mean Corpuscular Hemoglobin 32.4 pg (25-34) Mean Corpuscular Hemoglobin Concent 35.9 g/dl (32-36) Platelet Count 253 K/uL (130-400) Mean Platelet Volume 8.9 fL (7.4-10.4) Neutrophils (%) (Auto) 58.5 % Lymphocytes (%) (Auto) 34.2 % Monocytes (%) (Auto) 5.1 % Eosinophils (%) (Auto) 1.3 % Basophils (%) (Auto) 0.8 % Neutrophils # (Auto) 4.96 K/uL (1.4-6.5) Lymphocytes # (Auto) 2.90 K/uL (1.2-3.4) Monocytes # (Auto) 0.43 K/uL (0.11-0.59) Eosinophils # (Auto) 0.11 K/uL (0-0.5) Basophils # (Auto) 0.07 K/uL (0-0.2) RDW Standard Deviation 42.1 fL (36.4-46.3) RDW Coefficient of Variation 12.6 % (11.5-14.5) Immature Granulocyte % (Auto) 0.1 % Immature Granulocyte # (Auto) 0.01 K/uL (0.00-0.02) Prothrombin Time 9.9 SECONDS (9.0-12.0) Prothromb Time International Ratio 0.9 (0.9-1.1) Activated Partial Thromboplast Time 25.1 SECONDS (21.0-31.0) Partial Thromboplastin Ratio 1.0 Anion Gap 9.0 mmol/L (3-11) Est Creatinine Clear Calc Drug Dose 71.6 ml/min Estimated GFR () 81.6 Estimated GFR (Non- 70.4 BUN/Creatinine Ratio 14.9 (10-20) Calcium Level 9.5 mg/dl (8.5-10.1) Total Bilirubin 0.4 mg/dl (0.2-1) Direct Bilirubin 0.1 mg/dl (0-0.2) Aspartate Amino Transf (AST/SGOT) 36 U/L (15-37) Alanine Aminotransferase (ALT/SGPT) 45 U/L (12-78) Alkaline Phosphatase 59 U/L (45-117) Troponin I < 0.015 ng/ml (0-0.045) Total Protein 7.5 gm/dl (6.4-8.2) Albumin 3.8 gm/dl (3.4-5.0) Lipase 283 U/L (73-393) Human Chorionic Gonadotropin, Qual NEG (NEG) Laboratory results per my review. Medications Administered Medications (Trade) Dose Ordered Sig/Chantell Route Start Time Stop Time Status Last Admin Dose Admin Sodium Chloride 1,000 ml @ 999 mls/hr Q1H1M STAT IV 01/09/17 11:56 01/09/17 12:56 DC 01/09/17 12:14 999 MLS/HR Morphine Sulfate (MoRPHine SULFATE INJ) 4 mg Q15M PRN IV 01/09/17 12:00 01/09/17 15:23 DC 01/09/17 13:40 4 MG Ondansetron HCl (Zofran Inj) 4 mg NOW STAT IV 01/09/17 11:56 01/09/17 11:58 DC 01/09/17 12:14 4 MG Ondansetron HCl (Zofran Inj) 4 mg NOW STAT IV 01/09/17 12:42 01/09/17 12:43 DC 01/09/17 12:46 4 MG ECG Indication: abdominal pain Rate (beats per minute): 72 Rhythm: normal sinus Findings: no acute ischemic change, no ectopy Comparison ECG Date: 05/22/13 Change: no significant change ED Course 1150: The patient was evaluated in room B2. A complete history and physical examination were performed. 1156: Zofran 4 mg IV, NSS 1000 ml @ 999 mls/hr IV 1200: Morphine sulfate 4 mg IV - PRN 1242: Zofran 4 mg IV 1447: I reassessed the patient at this time. She is feeling better and resting comfortably. I discussed the results and treatment plan with the patient. I answered all pertaining questions that she had. She expressed understanding and verbalized agreement. The patient will be discharged home. Medical Decision Differential diagnosis: Etiologies such as appendicitis, diverticulitis, PUD, biliary pathology, UTI, pancreatitis, obstruction, mesenteric ischemia, aortic pathology, infections, inflammatory bowel disease, renal colic, as well as others were entertained. Nursing notes reviewed. The patient is a 41-year-old female who presented to the emergency department from her primary care physician's office for upper abdominal pain. The patient had significant right upper quadrant abdominal pain. The patient does not have a gallbladder. She had some hematuria but her ultrasound did not reveal any definite signs of hydronephrosis. At this time I do feel her condition could be consistent with a recently passed kidney stone. She was treated with IV fluids IV pain medicine and antiemetics. On subsequent reevaluation she was feeling much better. She was encouraged to rest and avoid any strenuous activity. She was also encouraged to continue all medications as prescribed. She was encouraged to follow-up with her primary care physician as possible return to the emergency apartment immediately if symptoms change worsen or the need arises. Medication Reconcilliation Current Medication List: was personally reviewed by me Blood Pressure Screening Patient's blood pressure: Elevated blood pressure Blood pressure disposition: Elevated BP felt to be situational Impression Primary Impression: RUQ abdominal pain Additional Impression: Hematuria Scribe Attestation The scribe's documentation has been prepared under my direction and personally reviewed by me in its entirety. I confirm that the note above accurately reflects all work, treatment, procedures, and medical decision making performed by me. Departure Information Dispostion Home / Self-Care Prescriptions Oxycodone Immediate Rel Tab (ROXICODONE IR) 5 Mg Tab 1-2 TAB PO Q4H Y for Severe Pain, #20 TAB Prov: Pascual Simons, DO 01/09/17 Cephalexin Monohydrate (KEFLEX) 500 Mg Cap 500 MG PO QID, #28 CAP Prov: Pascual Simons, DO 01/09/17 Referrals Vanessa Jenkins (PCP) Forms Call Back Authorization, HOME CARE DOCUMENTATION FORM, IMPORTANT VISIT INFORMATION Patient Instructions Abdominal Pain, My [facility] Additional Instructions Continue all medications as prescribed. Call your family to schedule a follow-up appointment. Drink plenty clear liquids. Problem Qualifiers Additional Impression: Hematuria Hematuria type: unspecified type Qualified Codes: R31.9 - Hematuria, unspecified
--- NOTE | 2017-01-09 13:25 | DIAGNOSTIC IMAGING REPORT ---
(RENAL)RETROPERITON COMP CLINICAL HISTORY: 41 years-old Female presenting with flank pain. TECHNIQUE: Real-time grayscale and limited color Doppler ultrasound imaging of the kidneys and bladder was performed. COMPARISON: None. FINDINGS: Right kidney: Normal echogenicity. Right kidney measures 9.9 cm. No hydronephrosis. No convincing evidence of calculus or mass. Normal perfusion. Left kidney: Normal echogenicity. Left kidney measures 10.2 cm. No hydronephrosis. No convincing evidence of calculus or mass. Normal perfusion. Bladder: No bladder wall thickening. Bilateral ureteral jets present. Other: Hyperechogenicity consistent with hepatic steatosis. IMPRESSION: 1. Normal renal ultrasound. No obstruction. 2. Hepatic steatosis. Correlate with LFTs to exclude steatohepatitis as a cause for flank pain. Electronically signed by: Amanuel Roblero M.D. 01/09/2017 1:24 PM Dictated Date/Time: 01/09/2017 1:19 PM
--- NOTE | 2017-01-09 14:18 | DIAGNOSTIC IMAGING REPORT ---
CHEST ONE VIEW PORTABLE CLINICAL HISTORY: Pain, radiating to the abdomen. COMPARISON STUDY: 05/22/2013 FINDINGS: The cardiac and mediastinal contours are normal. There is no evidence of focal pulmonary consolidation. There is no evidence of failure. No pleural effusions are visualized.[ No free intraperitoneal air is visualized. IMPRESSION: No active disease in the chest. Electronically signed by: Truong Navarro M.D. 01/09/2017 2:17 PM Dictated Date/Time: 01/09/2017 2:16 PM
--- NOTE | 2017-01-09 14:26 | DIAGNOSTIC IMAGING REPORT ---
KUB CLINICAL HISTORY: Right flank pain. COMPARISON STUDY: CT of the abdomen and pelvis October 26, 2016 and renal ultrasound performed earlier today. FINDINGS: Pelvic calcifications were shown to represent phleboliths on prior CT. There are cholecystectomy clips. No urinary calculi are identified. Bowel gas pattern is normal. IMPRESSION: 1. No urinary calculi identified. 2. No evidence for a bowel obstruction. Electronically signed by: Mateo Jones M.D. 01/09/2017 2:25 PM Dictated Date/Time: 01/09/2017 2:24 PM
[2017-01-09] MEDS ORDERED: OXYC1TAB3 PO (14:49)
[2017-01-09] MEDS ORDERED: CEPH500C2 PO (14:49)
[2017-01-09 14:50] VITALS: BP 130/76; PULSE 65; O2SAT 98
== END 2017-01-09 15:01 | disposition home or self-care (01) ==
LOC: C.EDB 11:44
DX: R10.11 Right upper quadrant pain (principal); R31.9 Hematuria, unspecified; J45.909 Unspecified asthma, uncomplicated; Z87.01 Personal history of pneumonia (recurrent); Z98.891 History of uterine scar from previous surgery; Z90.49 Acquired absence of other specified parts of digestive tract; Z90.89 Acquired absence of other organs; Z83.3 Family history of diabetes mellitus; Z82.49 Family history of ischemic heart disease and other diseases of the circulatory system; Z84.1 Family history of disorders of kidney and ureter; Z82.0 Family history of epilepsy and other diseases of the nervous system

== ENCOUNTER → 2017-03-20 | Outpatient (CLI) | payer OTHER ==
[~2017-03-20] MED LIST changes: +AMT10 PO; -BCPILLS PO; +CEPH500C2 PO; +NORE0.1T PO; -ONDA4TAB10 SL; +ONDA8TAB62 SL; -OXYC-57 PO; +OXYC1TAB3 PO; -PANT40TA PO
== END | disposition home or self-care (01) ==
LOC: C.PATHSPEC 17:18
PROVIDERS: ATTEND Urology
DX: R31.29 Other microscopic hematuria (principal)

== ENCOUNTER → 2017-04-08 | Outpatient (CLI) | payer OTHER ==
[2017-04-08 10:45] LABS: ALBUMIN 3.4 gm/dl (3.4-5.0); ALT/SGPT 35 U/L (12-78); AST/SGOT 26 U/L (15-37); BLOOD UREA NITROGEN 12 mg/dl (7-18); CALCIUM 8.8 mg/dl (8.5-10.1); CARBON DIOXIDE 25 mmol/L (21-32); CREATININE 0.97 mg/dl (0.60-1.20); GLUCOSE 78 mg/dl (70-99); POTASSIUM 3.8 mmol/L (3.5-5.1); SODIUM 137 mmol/L (136-145)
[2017-04-08 10:48] LABS: ALKALINE PHOSPHATASE 50 U/L (45-117); TOTAL PROTEIN 6.7 gm/dl (6.4-8.2)
== END | disposition home or self-care (01) ==
LOC: C.LAB 09:10
PROVIDERS: ATTEND Urology
DX: R31.29 Other microscopic hematuria (principal)

== ENCOUNTER → 2017-04-11 | Outpatient (CLI) | payer OTHER ==
[~2017-04-11] MED LIST changes: +OPTIRAY 320 IV PRN
--- NOTE | 2017-04-11 09:10 | DIAGNOSTIC IMAGING REPORT ---
ABD/PELVIS COMBO CLINICAL HISTORY: 41 years-old Female presenting with R31.29 Hematuria, microscopic, no history of kidney stones. TECHNIQUE: Multidetector CT of the abdomen and pelvis was performed before and after the administration of intravenous contrast. IV contrast: 94 mL of Optiray 320. A dose lowering technique was used consistent with the principles of ALARA (as low as reasonably achievable). COMPARISON: 10/26/2016. CT DOSE (mGy.cm): The estimated cumulative dose is 1196.42 mGy.cm. FINDINGS: Mechanical Engineering Technician topogram: Cholecystectomy clips. Lung bases: Solid triangular central nodule in the right lower lobe measures 3 mm (series 3 image 9). Normal heart size. No pericardial or pleural effusion. Liver: Normal morphology. Density consistent with hepatic steatosis. Biliary: No intrahepatic or extrahepatic biliary ductal dilatation. Gallbladder surgically absent. Pancreas: Normal. Spleen: Normal. Adrenal glands: Normal. Kidneys and ureters: Normal. No hydronephrosis. No nephrolithiasis. Normal urinary collecting systems. Poor visualization of the distal left ureter. Bladder: Allowing for incomplete distention, mild circumferential bladder wall thickening. No polypoid or focal bladder mass evident. No bladder calculi. Pelvic organs: Globular uterus suggesting underlying fibroids. Normal ovaries. Bowel: Moderate stool burden throughout normal caliber colon. Normal appendix. No bowel obstruction. Peritoneal cavity: Trace free fluid likely physiologic. No free gas. Lymph nodes: No enlarged lymph nodes in the abdomen or pelvis. Vasculature: Aorta and IVC patent and normal in caliber. Abdominal wall: Small fat-containing umbilical hernia. Musculoskeletal: Normal. IMPRESSION: 1. No nephrolithiasis. No evidence of renal or urothelial mass. No urinary obstruction. 2. Circumferential bladder wall thickening suggests underlying cystitis. Correlate with urinalysis. No CT evidence of pyelonephritis. 3. Directed uterine fibroids. 4. Constipation. 5. Solid 3 mm pulmonary nodule in the right lower lobe. In a low risk patient, this does not require follow-up. Please refer to below summary of Fleischner Society 2017 recommendations for follow-up of incidental CT nodules (Anyi Germain et al. Guidelines for management of incidental pulmonary nodules detected on CT images: From the Fleischner Society 2017. Radiology 2017; 284: 228-243.) SOLID NODULES Single nodule; size < 6 mm * Low risk patients: No routine follow-up * High risk patients: Optional CT at 12 months Single nodule; size 6-8 mm * Low risk patients: CT at 6-12 months, then consider CT at 18-24 months * High risk patients: CT at 6-12 months, then at 18-24 months Single nodule; size > 8 mm * Either low or high risk patients: Considered CT at 3 months, PET/CT, or tissue sampling Multiple nodules; size < 6 mm * Low risk patients: No routine follow up * High risk patients: Optional CT at 12 months Multiple nodules; size 6-8 mm * Low risk patients: CT at 3-6 months, then consider CT at 18-24 months * High risk patients: CT at 3-6 months, then at 18-24 months Multiple nodules; size > 8 mm * Low risk patients: CT at 3-6 months, then consider at 18-24 months * High risk patients: CT at 3-6 months, then at 18-24 months Note: These guidelines apply to incidental nodules. These guidelines do not apply to patients younger than 35 years, immunocompromised patients, or patients with cancer. * Low risk patients: Minimal or absent history of smoking and/or other known risk factors * High risk patients: History of smoking, exposure to other carcinogens, emphysema, fibrosis, upper lobe location, family history of lung cancer, etc. * If a nodule up to 8 mm is partly solid or is ground glass, further follow-up is required after 24 months to exclude possible slow growing adenocarcinoma. SUBSOLID NODULES Single ground-glass nodule * Nodule size < 6 mm: No routine follow-up * Nodule size > or = 6 mm: CT at 6-12 months to confirm persistence, then CT every 2 years until 5 years Single part-solid nodule * Nodule size < 6 mm: No routine follow-up * Nodules size > or = 6 mm: CT at 3-6 months to confirm persistence. If unchanged and solid component remains < 6 mm, annual CT should be performed for 5 years Multiple nodules * Nodule size < 6 mm: CT at 3-6 months. If stable, consider CT at 2 and 4 years. * Nodules size > or = 6 mm: CT at 3-6 months. Subsequent management based on the most suspicious nodule(s) Electronically signed by: Amanuel Roblero M.D. 04/11/2017 9:09 AM Dictated Date/Time: 04/11/2017 9:01 AM
== END | disposition home or self-care (01) ==
LOC: C.CTS 08:39
PROVIDERS: ATTEND Urology
DX: R31.29 Other microscopic hematuria (principal); N32.89 Other specified disorders of bladder

== ENCOUNTER → 2017-05-30 | Outpatient (CLI) | payer OTHER ==
[~2017-05-30] MED LIST changes: +CPR500 PO; +FUROSEMIDE 40 MG/4 ML VIAL IV ONE; -OPTIRAY 320 IV PRN; +OXYC7.5T65 PO; +PHEN-775 PO
--- NOTE | 2017-05-30 12:26 | DIAGNOSTIC IMAGING REPORT ---
RENAL SCAN DIURETIC (MAG 3) CLINICAL HISTORY: Microscopic hematuria. COMPARISON STUDY: CT of the abdomen and pelvis April 11, 2017. TECHNIQUE: 8.8 mCi of technetium 99m MAG3 was injected IV at 10:30 AM on May 30, 2017. Immediately following injection, flow images were obtained in the posterior projection. Function curves were obtained. Differential function was obtained. 20 mg of Lasix was administered IV during the exam. FINDINGS: Flow to both kidneys is symmetric. Note is made of symmetric excretion of radiotracer from both kidneys with split function of 50% left kidney and 50% right kidney. Normal radiotracer deposition is noted. There is no evidence for a significant obstruction. IMPRESSION: Normal renal MAG3 scan with symmetric renal flow and function. Split function of 50% left kidney and 50% right kidney. Electronically signed by: Mateo Jones M.D. 05/30/2017 12:24 PM Dictated Date/Time: 05/30/2017 12:22 PM
== END | disposition home or self-care (01) ==
LOC: C.NUCL 09:54
PROVIDERS: ATTEND Urology
DX: R31.29 Other microscopic hematuria (principal)

== ENCOUNTER → 2017-05-31 | Outpatient (CLI) | payer OTHER ==
[~2017-05-31] MED LIST changes: -FUROSEMIDE 40 MG/4 ML VIAL IV ONE
[2017-05-31 14:45] LABS: BASO % 0.6 %; BASO ABS # 0.05 K/uL (0-0.2); EOS ABS # 0.08 K/uL (0-0.5); HEMATOCRIT 46.3 % (37-47); HEMOGLOBIN 16.1 g/dL (12.0-16.0); IG# 0.02 K/uL (0.00-0.02); LYMPH % 35.8 %; LYMPH ABS # 2.86 K/uL (1.2-3.4); MEAN CELL VOLUME 90.6 fL (80-100); MEAN CORPUSCULAR HEMOGLOBIN 31.5 pg (25-34); MEAN CORPUSCULAR HGB CONC 34.8 g/dl (32-36); MEAN PLATELET VOLUME 9.1 fL (7.4-10.4); MONO % 4.5 %; MONO ABS # 0.36 K/uL (0.11-0.59); NEUT % 57.8 %; NEUT ABS # 4.62 K/uL (1.4-6.5); PLATELET COUNT 256 K/uL (130-400); RED CELL DISTRIBUTION WIDTH CV 12.7 % (11.5-14.5); RED CELL DISTRIBUTION WIDTH SD 42.3 fL (36.4-46.3); WHITE BLOOD COUNT 7.99 K/uL (4.8-10.8)
[2017-05-31 15:20] LABS: BLOOD UREA NITROGEN 15 mg/dl (7-18); CALCIUM 9.3 mg/dl (8.5-10.1); CARBON DIOXIDE 25 mmol/L (21-32); CREATININE 0.99 mg/dl (0.60-1.20); GLUCOSE 71 mg/dl (70-99); POTASSIUM 3.7 mmol/L (3.5-5.1); SODIUM 136 mmol/L (136-145)
== END | disposition home or self-care (01) ==
LOC: C.LAB 13:53
PROVIDERS: ATTEND Urology
DX: R31.29 Other microscopic hematuria (principal)

== ENCOUNTER 2017-06-10 07:03 | Day surgery (SDC) | payer OTHER ==
[2017-06-06 13:08] VITALS: BMI 25.0
[~2017-06-10] VITALS: Ht 162.6 cm; Wt 66.5 kg
[~2017-06-10 07:03] MED LIST changes: -AMT10 PO; -CEPH500C2 PO; +CIPROFLOXACIN / D5W 400 MG IV SCH; -CPR500 PO; +LACTATED RINGER'S 1000ML 1,000 ML IV SCH; +LIDOCAINE HCL 2% 2 ML VIAL (20MG/ML) ONE; -ONDA8TAB62 SL; -OXYC1TAB3 PO; -OXYC7.5T65 PO; -PHEN-775 PO
[2017-06-10 07:56] VITALS: BP 126/80; PULSE 74; TEMP 36.6; O2SAT 97; Ht 162.6 cm; Wt 66.5 kg
[2017-06-10] MEDS ORDERED: ATROPINE SULFATE 0.1 MG/ML 5ML SYR IV PRN (08:00)
[2017-06-10] MEDS ORDERED: EpHEDrine SULFATE INJ 50 MG/ML AMP IV PRN (08:00)
[2017-06-10] MEDS ORDERED: Cysto-Conray II 17.2% 250ML BOTTLE ONE (08:13)
--- NOTE | 2017-06-10 08:16 | History & Physical Bridge Note ---
H&P Re-Evaluation Bridge Note: I have examined the patient, reviewed the History & Physical and in the interval since the performance of the History & Physical I have noted the following changes of clinical significance: No changes noted
[2017-06-10] MEDS ORDERED: FENTANYL CITRATE INJ 50 MCG/1 ML 2 ML VIAL ONE (08:20)
[2017-06-10] MEDS ORDERED: MIDAZOLAM HCL 1 MG/ML 2ML VIAL ONE (08:20)
[2017-06-10] MEDS ORDERED: PROPOFOL IV EMULSION 10 MG/ML 20 ML VIAL IV ONE (08:21)
[2017-06-10] MEDS ORDERED: LIDOCAINE HCL 2% 2 ML VIAL (20MG/ML) ONE (08:21)
[2017-06-10] MEDS ORDERED: ONDANSETRON INJ 2 MG/ML 2 ML VIAL ONE ×2 (08:21→09:25)
[2017-06-10] MEDS ORDERED: OXYC7.5T65 PO (08:24)
[2017-06-10] MEDS ORDERED: CPR500 PO (08:24)
[2017-06-10] MEDS ORDERED: PHEN-775 PO (08:24)
--- NOTE | 2017-06-10 08:25 | Discharge Instructions ---
Discharge Instructions Date of Service Jun 10, 2017. Admission Reason for Admission: Hydronephrosis Discharge Discharge Diagnosis / Problem: Hyrdonephrosis Discharge Goals Goal(s): Decrease discomfort, Improve function Activity Recommendations Activity Limitations: resume your previous activity Lifting Limitations: gradually increase as tolerated Exercise/Sports Limitations: gradually increase as tolerated Shower/Bathe: no limitations . Instructions / Follow-Up Instructions / Follow-Up May have blood in urine. May have pelvic discomfort. Call if any fevers or chills. Current Hospital Diet Patient's current hospital diet: Discharge Diet Recommended Diet: Regular Diet Procedures Procedures Performed: Cystoscopy with Bilateral Retrogrades and Right Ureteroscopy. Pending Studies Studies pending at discharge: no Medical Emergencies . Who to Call and When: Medical Emergencies: If at any time you feel your situation is an emergency, please call 911 immediately. . Non-Emergent Contact Non-Emergency issues call your: Primary Care Provider, Urologist Call Non-Emergent contact if: you have a fever, temperature is above 101, temperature is above 101.5 . . "Provider Documentation" section prepared by Mj Gibson. .
[2017-06-10] MEDS ORDERED: OXYCODONE/ACETAMINOPHEN 7.5-325 TAB PO PRN (08:30)
--- NOTE | 2017-06-10 09:11 | [facility] Operative Report ---
Operative Report Operative Date Jun 10, 2017. Pre-Operative Diagnosis Hydronephrosis, Hematuria Post-Operative Diagnosis Same Procedure(s) Performed Cystoscopy, Right Ureteroscopy, dilation, stent. Bilateral Retrograde. Surgeon Arthur Estimated Blood Loss Minimal Findings Hydronephrosis of the right ureter. Specimens None Drains 6 Fr Multilength Anesthesia Type MAC Complication(s) none Disposition Recovery Room / PACU Indications Abnormality of the right distal ureter with hydronephrosis. Risks and benefits discussed. Description of Procedure Patient was consented and brought back to the operating room. Patient was placed under anesthesia in the supine position and moved to the dorsal lithotomy position. Patient was prepped and draped in the regular sterile fashion. A time out was completed. A 30degree Cystoscope was placed into the bladder and the entire bladder was examined. The UO's were identified. Each ureter was cannulized with a catheter and a retrograde pyelogram was completed. A wire was then placed on the right A second wire was placed and the short rigid ureteroscope was placed on the right. The entire ureter up to the proximal ureter was examined. A distal area was noted to be narrowed and mildly irritated. With the wire in place, a 6 Fr Double J stent was placed to dilate the area. It was confirmed with fluoroscopy. With the stent in place, the bladder was emptied. The scope was removed. The patient was cleaned, aroused from anesthesia, and transferred to the pacu in stable condition having tolerated the procedure well with no complications. I was present and participated in all aspects of the procedure. The patient will be monitored in the PACU until transferred. I attest to the content of the Intraoperative Record and any orders documented therein. Any exceptions are noted below.
[2017-06-10] MEDS ORDERED: NURSING VERBAL MED ORDER ONE ×4 (09:25→13:00)
[2017-06-10] MEDS ORDERED: DEXAMETHASONE SOD INJ 4 MG/ML VIAL ONE ×2 (09:48)
[2017-06-10] MEDS ORDERED: SCOPOLAMINE 1.5 MG TDSY TD ONE (09:48)
[2017-06-10] MEDS: FENTANYL CITRATE INJ 50 MCG/1 ML 2 ML VIAL IV PRN ×2 (09:58→10:03)
--- NOTE | 2017-06-10 10:53 | DIAGNOSTIC IMAGING REPORT ---
RETROGRADE UROGRAM CLINICAL HISTORY: Hematuria. COMPARISON STUDY: No previous studies for comparison. FINDINGS: 72 seconds of fluoroscopic time was utilized. Images are provided for interpretation. There is retrograde catheterization of both ureters. There is no hydronephrosis. No collecting systems or ureteral filling defects are visualized. The final 2 images demonstrate a right-sided nephroureteral stent. IMPRESSION: No collecting system or ureteral filling defects identified. Placement of a right-sided nephroureteral stent. Electronically signed by: Truong Navarro M.D. 06/10/2017 10:52 AM Dictated Date/Time: 06/10/2017 10:51 AM
--- NOTE | 2017-06-10 10:54 | Anesthesiology Progress Note ---
Anesthesia Post Op Note Date & Time Jun 10, 2017 at 10:54 Vital Signs Pain Intensity: 3 Vital Signs Past 12 Hours Date Time Temp Pulse Resp B/P (MAP) Pulse Ox O2 Delivery O2 Flow Rate FiO2 06/10/17 10:35 78 19 111/79 98 Room Air 06/10/17 10:25 36.7 63 19 124/80 100 Room Air 06/10/17 10:15 59 19 128/86 97 Room Air 06/10/17 10:05 77 19 118/78 97 Room Air 06/10/17 09:55 74 14 125/85 98 Room Air 06/10/17 09:45 65 14 127/83 98 Room Air 06/10/17 09:35 71 14 134/83 97 Room Air 06/10/17 09:25 74 14 120/74 96 Room Air 06/10/17 09:15 36.4 82 14 137/75 99 Oxymask 10 06/10/17 07:56 36.6 74 18 126/80 (95) 97 Notes Mental Status: alert / awake / arousable, participated in evaluation Pt Amnestic to Procedure: Yes Nausea / Vomiting: adequately controlled Pain: adequately controlled Airway Patency, RR, SpO2: stable & adequate BP & HR: stable & adequate Hydration State: stable & adequate Anesthetic Complications: no major complications apparent
[2017-06-10] MEDS ORDERED: PROMETHAZINE HCL INJ 6.25 MG in SODIUM CHLORIDE 0.9% 50ML 50 ML IV ONE (11:15)
[2017-06-10 11:47] VITALS: BP 144/94; PULSE 76; TEMP 36.9; O2SAT 98
[2017-06-10 12:15] VITALS: BP 149/90; PULSE 69; O2SAT 99
[2017-06-10 12:45] VITALS: BP 146/87; PULSE 70; TEMP 36.8; O2SAT 100
[2017-06-10] MEDS ORDERED: PHENAZOPYRIDINE HCL 200 MG TAB PO ONE ×2 (12:52→13:00)
[2017-06-10] MEDS ORDERED: CHECK SCOPOLAMINE PATCH PLACEMENT SCH (16:00)
== END 2017-06-10 13:09 | disposition home or self-care (01) ==
LOC: C.ACU 07:03
PROVIDERS: ATTEND Urology
DX: N13.30 Unspecified hydronephrosis (principal); R31.29 Other microscopic hematuria; J45.909 Unspecified asthma, uncomplicated; Z90.49 Acquired absence of other specified parts of digestive tract; Z90.89 Acquired absence of other organs; Z87.891 Personal history of nicotine dependence; Z83.3 Family history of diabetes mellitus; Z82.49 Family history of ischemic heart disease and other diseases of the circulatory system; Z84.1 Family history of disorders of kidney and ureter; Z80.0 Family history of malignant neoplasm of digestive organs